=== PATIENT | female | born 1980 | race Caucasian/White ===

== ENCOUNTER 2018-08-11 19:26 | Inpatient (IN) | payer BC, OTHER ==
[~2018-08-11] VITALS: Ht 170.2 cm; Wt 124.3 kg
[~2018-08-11 19:26] MED LIST: COLACE 100 MG100 MG PO; FLAGYL500 MG; IBUPROFEN 800800 M1 PO; IRON325 PO; NOHOMEMEDICATIONS; NORCO 5-325 TA1 EACH PO; PRENATAL PO; SENNA PO; SIMETHICON CHEW80 MG PO
[2018-08-11 19:35] VITALS: BP 114/88
--- NOTE | 2018-08-11 20:00 | NUR ---
PATIENT ADJUSTED TO POSITION OF COMFORT. LIGHTS DIMMED. CALL LIGHT WITHIN REACH.
[2018-08-11 22:18] VITALS: BP 120/79
[2018-08-11 22:47] VITALS: BP 129/66
[2018-08-11 23:00] VITALS: BP 126/78
[2018-08-11] MEDS ORDERED: IPRAT-ALBUT 0.5-3 ML INH (23:22)
[2018-08-11] MEDS ORDERED: PROAIR HFA8.5 GM NASAL (23:24)
--- NOTE | 2018-08-12 01:28 | NUR ---
Received pt from ED. Pt has been having difficulty with breathing for the past several days. Pt has asthma and been using duoneb and proair more than recommended but it wasnt helping. She also has been coughing green colored mucus. She has been having back pain because of the coughing. Shes on room air. IV on right AC. Up at [facility]gan. Vitals are stable. No identified needs at the moment. Will continue to monitor.
[2018-08-12 04:00] VITALS: BP 104/66
[2018-08-12 08:03] VITALS: BP 121/94
[2018-08-12 17:11] VITALS: BP 142/65
--- NOTE | 2018-08-12 19:24 | NUR ---
QUIET UNEVENTFUL DAY. GUAIFENESIN GIVEN FOR COUGH. SMALL AMOUNT OF GREEN SPUTUM NOTED. LUNGS WITH WHEEZES TO RLL. VERY PLEASANT AND COOPERATIVE. UP AD GEOFF IN ROOM. STARTED ON DOXYCYCLINE. CONTINUED IV STEROIDS AND BREATHING TREATMENTS. POSSIBLE HOME TOMORROW. TOLERATING DIET.
[2018-08-12 19:36] VITALS: BP 105/53
[2018-08-13 03:05] VITALS: BP 126/80
--- NOTE | 2018-08-13 06:26 | NUR ---
progress pt a/o x4. vss. lungs clear in upper lobes but wheezing noted in rll, and diminished in lll. has a strong cough reports back pain from coughing. taking tylenol with effect pt able to sleep after meds given. up ad morgan, voiding qs. RT tx's and iv steroids continue. saline lock to rac flushes sluggishly but continues to work. hopes to dc home in next day or so.
[2018-08-13 07:20] VITALS: BP 129/79
[2018-08-13] MEDS ORDERED: DOXYCYCLINE HYC50 MG PO (09:54)
[2018-08-13] MEDS ORDERED: IPRAT-ALBUT 0.5-3 ML INH (09:55)
[2018-08-13] MEDS ORDERED: GUAIFENESIN DM S5 ML PO (09:55)
[2018-08-13] MEDS ORDERED: PROAIR HFA8.5 GM NASAL (09:55)
[2018-08-13] MEDS ORDERED: PREDNISONE 20 M20 MG PO (09:56)
[2018-08-13] MEDS ORDERED: SINGULAIR 10 MG10 M1 PO (09:56)
[2018-08-13] MEDS ORDERED: ADVAIR HFA 230M12 GM INH (09:57)
[2018-08-13 10:04] VITALS: BP 129/79
--- NOTE | 2018-08-13 11:42 | NUR ---
ASSUMED CARE AT 0700. AXOX4. ASTHMA EXACERBATION. SEEN BY AT BEDSIDE. RECEIVED AN ORDER TO D/C HOME. D/C INSTRUCTION AND PRESCRIPTIONS GIVEN AT BEDSIDE. IV REMOVED. ALL QUESTIONS ANSWERED. NO S/S ACUTE DISTRESS AT THIS TIME.
== END 2018-08-13 12:30 | disposition home or self-care (01) | DRG 202 ==
LOC: ER 19:26 → 4W 21:54 → EROBS 21:54 → 4W 22:49 → ENTRNSPT 08-13 11:51 → EDTRNSPTSTS 08-13 11:57 → 4W 08-13 12:30
PROVIDERS: ADMIT Hospitalist
DX: J45.901 Unspecified asthma with (acute) exacerbation (principal); Z68.41 Body mass index [BMI] 40.0-44.9, adult; E66.9 Obesity, unspecified; Z86.711 Personal history of pulmonary embolism; Z87.01 Personal history of pneumonia (recurrent); Z79.899 Other long term (current) drug therapy
CPT/HCPCS: 10040